=== PATIENT | male | born 1955 | race Caucasian/White ===

== ENCOUNTER → 2021-01-10 | Outpatient (CLI) | payer MEDICARE, MEDICAID ==
[~2021-01-10] MED LIST: ADULT LOW DOSE81 MG PO; ADVAIR 250-501 EACH IH; ALBUTEROL; ALBUTEROL2.5 MG/0.5 INH; ALPRAZOLAM2 MG PO; ASPIR 8181 MG PO; ASPIRIN325 PO; BACTRIM DS TAB1 EACH PO; CEFPODOXIME PR200 M1 PO; CLOBETASOL PROP60 G1 TP; COMBIVENT INH; Combivent INH; DOXYCYCLINE 10100 MG PO; GABAPENTIN 100100 MG PO; GLUCOTROL5 MG PO; GLYBURIDE 2.52.5 MG PO; HYDROCHLOROTH12.5 M1 PO; HYDROCODON-ACE1 EAC7 PO; HYDROCODONE-AP1 EAC6 PO; IPRATROPIUM; LEVAQUIN 750 M750 MG PO; LIPITOR 20 MG T20 M1 PO; LISINOPRIL5 MG PO; MEDROLDOSEPACK PO; METFORMIN HCL500 MG PO; MULTAQ400 MG PO; NORCO 5-325 TA1 EACH PO; OSELB75 PO; PREDNISONE 10 M10 MG PO; PREDNISONE 20 M20 M1 PO; PREDNISONE 20 M20 MG PO; PREDNISONE 5 MG5 M1 PO; PREDNISONE50 MG PO; PRINIVIL20 MG PO; PROAIR HFA8.5 GM IH; PROTONIX40 M1 PO; PROVENTIL HFA6.7 G1 INH; SINGULAIR 10 MG10 M1 PO; TYLENOL EXTRA500 MG PO; VENTOLIN17 GM INH; ZOCOR20 MG PO; [UNRECOGNIZED DRUG - OTHER] INH
== END ==
LOC: M.ULTRA 13:00
PROVIDERS: ATTEND Internal Medicine
DX: J84.10 Pulmonary fibrosis, unspecified (principal); I65.23 Occlusion and stenosis of bilateral carotid arteries; J44.9 Chronic obstructive pulmonary disease, unspecified; N28.1 Cyst of kidney, acquired; N18.9 Chronic kidney disease, unspecified; F17.200 Nicotine dependence, unspecified, uncomplicated; Z88.8 Allergy status to other drugs, medicaments and biological substances

== ENCOUNTER → 2021-08-13 | Outpatient (CLI) | payer MEDICARE, MEDICAID | LOC: M.CT 08:59 | PROVIDERS: ATTEND Internal Medicine | DX: Z12.2 Encounter for screening for malignant neoplasm of respiratory organs (principal); J84.10 Pulmonary fibrosis, unspecified; Z87.891 Personal history of nicotine dependence ==